=== PATIENT | female | born 1965 | race Caucasian/White ===

== ENCOUNTER 2017-10-06 21:29 | Emergency (ER) | payer BC ==
--- NOTE | 2017-10-06 21:34 | EDM.PDOC ---
ED HPI GENERAL MEDICAL PROBLEM - General Stated Complaint: SUSIDAL Time Seen by Provider: 10/06/17 21:31 - History of Present Illness INITIAL COMMENTS - FREE TEXT/NARRATIVE: HISTORY AND PHYSICAL: History of present illness: Patient 52-year-old female history of depression presents with concern of suicidal ideation she denies any ingestion or attempt and is agreeable to hospitalization Review of systems: As per history of present illness and below otherwise all systems reviewed and negative. Past medical history: As per history of present illness and as reviewed below otherwise noncontributory. Surgical history: As per history of present illness and as reviewed below otherwise noncontributory. Social history: No reported history of drug or alcohol abuse. Family history: As per history of present illness and as reviewed below otherwise noncontributory. Physical exam: HEENT: Atraumatic, normocephalic, pupils reactive, negative for conjunctival pallor or scleral icterus, mucous membranes moist, throat clear, neck supple, nontender, trachea midline. Lungs: Clear to auscultation, breath sounds equal bilaterally, chest nontender. Heart: S1S2, regular, negative for clicks, rubs, or JVD. Abdomen: Soft, nondistended, nontender. Negative for masses or hepatosplenomegaly. Negative for costovertebral tenderness. Pelvis: Stable nontender. Genitourinary: Deferred. Rectal: Deferred. Extremities: Atraumatic, negative for cords or calf pain. Neurovascular unremarkable. Neuro: Awake, alert, oriented. Cranial nerves II through XII unremarkable. Cerebellum unremarkable. Motor and sensory unremarkable throughout. Exam nonfocal. Diagnostics: Psychiatric panel Therapeutics: None Impression: #1 depressive episode with suicidal ideation Definitive disposition and diagnosis as appropriate pending reevaluation and review of above. - Related Data Allergies Allergy/AdvReac Type Severity Reaction Status Date / Time bupropion HCl Allergy Hives Verified 05/15/16 22:14 [From Wellbutrin] Home Meds: Home Meds Hydrocodone/Acetaminophen [Hydrocodon-Acetaminophen 5-325] 5 - 325 mg PO Q4H PRN 05/01/15 [History] LORazepam 1 mg PO TID PRN 05/01/15 [History] Past Medical History HEENT History: Reports: None Cardiovascular History: Reports: Hypertension Other Cardiovascular History: patient claims she has hypertension but she was not taking her antihypertensive meds Musculoskeletal History: Reports: Back Pain, Chronic Neurological History: Reports: Seizure Other Neuro History: had one attack of seizure after taking Wellbutrin Psychiatric History: Reports: ADHD, Anxiety Endocrine/Metabolic History: Reports: None - Infectious Disease History Infectious Disease History: Reports: None - Past Surgical History Musculoskeletal Surgical History: Reports: Other (See Below) Social & Family History - Family History Family Medical History: Noncontributory - Caffeine Use Caffeine Use: Reports: Soda ED ROS GENERAL - Review of Systems Review Of Systems: ROS reveals no pertinent complaints other than HPI. ED EXAM, GENERAL - Physical Exam Exam: See Below (See dictation) Course - Vital Signs Last Recorded V/S: Last Vital Signs Temp 36.8 C 10/06/17 21:41 Pulse 133 H 10/06/17 21:41 Resp 28 H 10/06/17 21:41 BP 190/124 H 10/06/17 22:24 Pulse Ox 96 10/06/17 21:41 - Orders/Labs/Meds Orders: Active Orders 24 hr Category Date Time Status EKG Documentation Completion [RC] STAT Care 10/06/17 21:32 Active DRUG SCREEN, URINE [URCHEM] Stat Lab 10/06/17 21:56 Ordered UA W/MICROSCOPIC [URIN] Stat Lab 10/06/17 21:56 Ordered Labs: Laboratory Tests 10/06/17 10/06/17 10/06/17 Range/Units 21:40 21:40 21:56 WBC 8.57 (4.0-11.0) K/uL RBC 4.22 L (4.30-5.90) M/uL Hgb 15.5 (12.0-16.0) g/dL Hct 44.6 (36.0-46.0) % MCV 105.7 H (80.0-98.0) fL MCH 36.7 H (27.0-32.0) pg MCHC 34.8 (31.0-37.0) g/dL RDW Std Deviation 50.3 (28.0-62.0) fl RDW Coeff of Patsy 13 (11.0-15.0) % Plt Count 218 (150-400) K/uL MPV 9.90 (7.40-12.00) fL Neut % (Auto) 59.3 (48.0-80.0) % Lymph % (Auto) 32.8 (16.0-40.0) % [place] % (Auto) 6.4 (0.0-15.0) % Eos % (Auto) 0.9 (0.0-7.0) % Baso % (Auto) 0.6 (0.0-1.5) % Neut # (Auto) 5.1 (1.4-5.7) K/uL Lymph # (Auto) 2.8 H (0.6-2.4) K/uL [place] # (Auto) 0.6 (0.0-0.8) K/uL Eos # (Auto) 0.1 (0.0-0.7) K/uL Baso # (Auto) 0.1 (0.0-0.1) K/uL Nucleated RBC % 0.0 /100WBC Nucleated RBCs # 0 K/uL Sodium 136 (136-145) mmol/L Potassium 3.3 L (3.5-5.1) mmol/L Chloride 100 (98-107) mmol/L Carbon Dioxide 21.8 (21.0-32.0) mmol/L BUN 15 (7.0-18.0) mg/dL Creatinine 1.0 (0.6-1.0) mg/dL Est Cr Clr Drug Dosing 62.54 mL/min Estimated GFR (MDRD) 57.8 ml/min Glucose 97 (74-106) mg/dL Calcium 9.2 (8.5-10.1) mg/dL Magnesium 1.9 (1.8-2.4) mg/dL Total Bilirubin 0.9 (0.2-1.0) mg/dL AST 61 H (15-37) IU/L ALT 46 (14-63) IU/L Alkaline Phosphatase 81 (46-116) U/L Total Protein 7.9 (6.4-8.2) g/dL Albumin 4.0 (3.4-5.0) g/dL Globulin 3.9 H (2.0-3.5) g/dL Albumin/Globulin Ratio 1.0 L (1.3-2.8) TSH 3rd Generation 2.02 (0.36-3.74) uIU/mL Urine Color YELLOW Urine Appearance CLEAR Urine pH 5.5 (5.0-8.0) Ur Specific Peetz <= 1.005 (1.001-1.035) Urine Protein NEGATIVE (NEGATIVE) mg/dL Urine Glucose (UA) NEGATIVE (NEGATIVE) mg/dL Urine Ketones NEGATIVE (NEGATIVE) mg/dL Urine Occult Blood NEGATIVE (NEGATIVE) Urine Nitrite NEGATIVE (NEGATIVE) Urine Bilirubin NEGATIVE (NEGATIVE) Urine Urobilinogen 0.2 (<2.0) EU/dL Ur Leukocyte Esterase NEGATIVE (NEGATIVE) Urine RBC NONE SEEN (0-2/HPF) Urine WBC 0-1 (0-5/HPF) Ur Epithelial Cells RARE (NONE-FEW) Urine Bacteria RARE (NEGATIVE) Urine Mucus LIGHT (NONE-MOD) Salicylates 1.6 (0-20) mg/dL Urine Opiates Screen (NEGATIVE) Ur Oxycodone Screen (NEGATIVE) Urine Methadone Screen (NEGATIVE) Acetaminophen 0.0 ug/mL Ur Barbiturates Screen (NEGATIVE) Ur Phencyclidine Scrn (NEGATIVE) Ur Amphetamine Screen (NEGATIVE) U Methamphetamines Scrn (NEGATIVE) U Benzodiazepines Scrn (NEGATIVE) U Cocaine Metab Screen (NEGATIVE) U Marijuana (THC) Screen (NEGATIVE) Ethyl Alcohol 259 mg/dL 10/06/17 Range/Units 21:56 WBC (4.0-11.0) K/uL RBC (4.30-5.90) M/uL Hgb (12.0-16.0) g/dL Hct (36.0-46.0) % MCV (80.0-98.0) fL MCH (27.0-32.0) pg MCHC (31.0-37.0) g/dL RDW Std Deviation (28.0-62.0) fl RDW Coeff of Patsy (11.0-15.0) % Plt Count (150-400) K/uL MPV (7.40-12.00) fL Neut % (Auto) (48.0-80.0) % Lymph % (Auto) (16.0-40.0) % [place] % (Auto) (0.0-15.0) % Eos % (Auto) (0.0-7.0) % Baso % (Auto) (0.0-1.5) % Neut # (Auto) (1.4-5.7) K/uL Lymph # (Auto) (0.6-2.4) K/uL [place] # (Auto) (0.0-0.8) K/uL Eos # (Auto) (0.0-0.7) K/uL Baso # (Auto) (0.0-0.1) K/uL Nucleated RBC % /100WBC Nucleated RBCs # K/uL Sodium (136-145) mmol/L Potassium (3.5-5.1) mmol/L Chloride (98-107) mmol/L Carbon Dioxide (21.0-32.0) mmol/L BUN (7.0-18.0) mg/dL Creatinine (0.6-1.0) mg/dL Est Cr Clr Drug Dosing mL/min Estimated GFR (MDRD) ml/min Glucose (74-106) mg/dL Calcium (8.5-10.1) mg/dL Magnesium (1.8-2.4) mg/dL Total Bilirubin (0.2-1.0) mg/dL AST (15-37) IU/L ALT (14-63) IU/L Alkaline Phosphatase (46-116) U/L Total Protein (6.4-8.2) g/dL Albumin (3.4-5.0) g/dL Globulin (2.0-3.5) g/dL Albumin/Globulin Ratio (1.3-2.8) TSH 3rd Generation (0.36-3.74) uIU/mL Urine Color Urine Appearance Urine pH (5.0-8.0) Ur Specific Peetz (1.001-1.035) Urine Protein (NEGATIVE) mg/dL Urine Glucose (UA) (NEGATIVE) mg/dL Urine Ketones (NEGATIVE) mg/dL Urine Occult Blood (NEGATIVE) Urine Nitrite (NEGATIVE) Urine Bilirubin (NEGATIVE) Urine Urobilinogen (<2.0) EU/dL Ur Leukocyte Esterase (NEGATIVE) Urine RBC (0-2/HPF) Urine WBC (0-5/HPF) Ur Epithelial Cells (NONE-FEW) Urine Bacteria (NEGATIVE) Urine Mucus (NONE-MOD) Salicylates (0-20) mg/dL Urine Opiates Screen NEGATIVE (NEGATIVE) Ur Oxycodone Screen NEGATIVE (NEGATIVE) Urine Methadone Screen NEGATIVE (NEGATIVE) Acetaminophen ug/mL Ur Barbiturates Screen NEGATIVE (NEGATIVE) Ur Phencyclidine Scrn NEGATIVE (NEGATIVE) Ur Amphetamine Screen NEGATIVE (NEGATIVE) U Methamphetamines Scrn NEGATIVE (NEGATIVE) U Benzodiazepines Scrn NEGATIVE (NEGATIVE) U Cocaine Metab Screen NEGATIVE (NEGATIVE) U Marijuana (THC) Screen NEGATIVE (NEGATIVE) Ethyl Alcohol mg/dL Meds: Medications Discontinued Medications Generic Name Dose Route Start Last Admin Trade Name Matt PRN Reason Stop Dose Admin Hydralazine HCl 10 mg 10/06/17 21:59 10/06/17 22:23 Apresoline IVPUSH 10/06/17 22:00 10 mg ONETIME ONE Administration Lisinopril 10 mg 10/06/17 21:59 10/06/17 22:24 Prinivil PO 10/06/17 22:00 10 mg ONETIME ONE Administration Lorazepam 1 mg 10/06/17 22:37 Ativan IVPUSH 10/06/17 22:38 ONETIME ONE Departure - Departure Time of Disposition: 22:43 Disposition: DC/Tfer to Psych Hosp/Unit 65 Condition: Good Clinical Impression: Depressive disorder, Alcohol abuse - Discharge Information - My Orders Last 24 Hours: My Active Orders 10/06/17 21:32 EKG Documentation Completion [RC] STAT 10/06/17 21:56 DRUG SCREEN, URINE [URCHEM] Stat UA W/MICROSCOPIC [URIN] Stat - Assessment/Plan Last 24 Hours: My Active Orders 10/06/17 21:32 EKG Documentation Completion [RC] STAT 10/06/17 21:56 DRUG SCREEN, URINE [URCHEM] Stat UA W/MICROSCOPIC [URIN] Stat
[2017-10-06] MEDS ORDERED: hydrALAZINE 20 MG/ML SDV IVPUSH ONE (21:59)
[2017-10-06] MEDS ORDERED: Lisinopril 10 MG Tab PO ONE (21:59)
[2017-10-06] MEDS: LORazepam 2 MG/ML SDV IVPUSH ONE ×2 (22:46→23:37)
[2017-10-06] MEDS ORDERED: LORazepam 2 MG/ML SDV IVPUSH ONE (23:29)
[2017-10-07 00:30] VITALS: BP 156/106
== END 2017-10-07 01:00 ==
LOC: MW.ED 21:29
DX: F32.9 Major depressive disorder, single episode, unspecified (principal); R45.851 Suicidal ideations; F10.129 Alcohol abuse with intoxication, unspecified; I10 Essential (primary) hypertension; F41.9 Anxiety disorder, unspecified; Z88.8 Allergy status to other drugs, medicaments and biological substances; Z79.899 Other long term (current) drug therapy; Y90.8 Blood alcohol level of 240 mg/100 ml or more
CPT/HCPCS: 36415; 80053; 80305; 81001; 83735; 84443; 85025; 93005; 96374; 96375; 99285; A9270; G0480; J0360; J2060

== ENCOUNTER 2018-05-29 22:14 | Emergency (ER) | payer BC ==
[2018-05-29] MEDS ORDERED: Sodium Chloride 0.9% 1,000 ML IV ONE (23:14)
[2018-05-29] MEDS ORDERED: diazePAM 5 MG/ML MDV ONE (23:24)
[2018-05-29] MEDS ORDERED: diazePAM 5 MG/ML MDV IV ONE (23:24)
[2018-05-29 23:38] VITALS: BP 154/115
--- NOTE | 2018-05-29 23:46 | EDM.PDOC ---
ED HPI GENERAL MEDICAL PROBLEM - General Chief Complaint: General Stated Complaint: PT HAS DIFFICULTY BREATHING Time Seen by Provider: 05/29/18 23:46 Source of Information: Reports: Patient - History of Present Illness INITIAL COMMENTS - FREE TEXT/NARRATIVE: HISTORY AND PHYSICAL: History of present illness: [Patient presents with anxiety symptoms she was provided Valium on arrival which much improved anxiety She has a long history of anxiety and panic seen by psychiatry, post Valium we did perform some lab however the patient eloped prior to lab returning She was somewhat milk content as she wanted to visit however I did have several acute patients requiring her transfer she did not want to wait and left prior to lab results ] She is in no distress no fever nausea vomiting chills sweats no chest pain shortness breath headache dizziness palpitation no bowel or urine symptoms Post Valium Review of systems: As per history of present illness and below otherwise all systems reviewed and negative. Past medical history: As per history of present illness and as reviewed below otherwise noncontributory. Surgical history: As per history of present illness and as reviewed below otherwise noncontributory. Social history: No reported history of drug or alcohol abuse. Family history: As per history of present illness and as reviewed below otherwise noncontributory. Physical exam: HEENT: Atraumatic, normocephalic, pupils reactive, negative for conjunctival pallor or scleral icterus, mucous membranes moist, throat clear, neck supple, nontender, trachea midline. Lungs: Clear to auscultation, breath sounds equal bilaterally, chest nontender. Heart: S1S2, regular, negative for clicks, rubs, or JVD. Abdomen: Soft, nondistended, nontender. Negative for masses or hepatosplenomegaly. Negative for costovertebral tenderness. Pelvis: Stable nontender. Genitourinary: Deferred. Rectal: Deferred. Extremities: Atraumatic, negative for cords or calf pain. Neurovascular unremarkable. Neuro: Awake, alert, oriented. Cranial nerves II through XII unremarkable. Cerebellum unremarkable. Motor and sensory unremarkable throughout. Exam nonfocal. Diagnostics: [CBC CMP troponin EKG Chest 1 view ] Therapeutics: [] saline 1 L bolus Valium 5 mg IV Patient eloped Impression: []anxiety/panic Definitive disposition and diagnosis as appropriate pending reevaluation and review of above. - Related Data Allergies Allergy/AdvReac Type Severity Reaction Status Date / Time bupropion HCl Allergy Hives Verified 05/29/18 22:41 [From Wellbutrin] Home Meds: Home Meds LORazepam 1 mg PO TID PRN 05/01/15 [History] Past Medical History HEENT History: Reports: None Cardiovascular History: Reports: Hypertension Other Cardiovascular History: patient claims she has hypertension but she was not taking her antihypertensive meds Musculoskeletal History: Reports: Back Pain, Chronic Neurological History: Reports: Seizure Other Neuro History: had one attack of seizure after taking Wellbutrin Psychiatric History: Reports: ADHD, Anxiety Endocrine/Metabolic History: Reports: None - Infectious Disease History Infectious Disease History: Reports: Chicken Pox, Shingles - Past Surgical History Musculoskeletal Surgical History: Reports: Other (See Below) Social & Family History - Family History Family Medical History: Noncontributory - Tobacco Use Smoking Status *Q: Current Every Day Smoker Years of Tobacco use: 20 Packs/Tins Daily: 1 - Caffeine Use Caffeine Use: Reports: Soda - Recreational Drug Use Recreational Drug Use: No ED ROS GENERAL - Review of Systems Review Of Systems: See Below ED EXAM, GENERAL - Physical Exam Exam: See Below Course - Vital Signs Last Recorded V/S: Last Vital Signs Temp 99.0 F 05/29/18 22:45 Pulse 113 H 05/29/18 23:37 Resp 22 H 05/29/18 23:37 BP 154/115 H 05/29/18 23:37 Pulse Ox 97 05/29/18 23:37 - Orders/Labs/Meds Orders: Active Orders 24 hr Category Date Time Status EKG Documentation Completion [RC] STAT Care 05/29/18 23:13 Active COMPREHENSIVE METABOLIC PN,CMP [CHEM] Stat Lab 05/30/18 00:12 Received TROPONIN I [CHEM] Stat Lab 05/30/18 00:12 Received Labs: Laboratory Tests 05/30/18 Range/Units 00:12 WBC 6.83 (4.0-11.0) K/uL RBC 4.10 L (4.30-5.90) M/uL Hgb 13.6 (12.0-16.0) g/dL Hct 41.0 (36.0-46.0) % MCV 100.0 H (80.0-98.0) fL MCH 33.2 H (27.0-32.0) pg MCHC 33.2 (31.0-37.0) g/dL RDW Std Deviation 57.3 (28.0-62.0) fl RDW Coeff of Patsy 16 H (11.0-15.0) % Plt Count 223 (150-400) K/uL MPV 9.50 (7.40-12.00) fL Neut % (Auto) 57.9 (48.0-80.0) % Lymph % (Auto) 35.1 (16.0-40.0) % [place] % (Auto) 6.0 (0.0-15.0) % Eos % (Auto) 0.6 (0.0-7.0) % Baso % (Auto) 0.4 (0.0-1.5) % Neut # (Auto) 4.0 (1.4-5.7) K/uL Lymph # (Auto) 2.4 (0.6-2.4) K/uL [place] # (Auto) 0.4 (0.0-0.8) K/uL Eos # (Auto) 0.0 (0.0-0.7) K/uL Baso # (Auto) 0.0 (0.0-0.1) K/uL Meds: Medications Discontinued Medications Generic Name Dose Route Start Last Admin Trade Name Freq PRN Reason Stop Dose Admin Diazepam 5 mg 05/29/18 23:24 05/29/18 23:30 Valium IV 05/29/18 23:25 5 mg ONETIME ONE Administration Diazepam Confirm 05/29/18 23:24 05/29/18 23:29 Valium Administered 05/29/18 23:25 Not Given Dose 5 mg .ROUTE .STK-MED ONE Sodium Chloride 1,000 mls @ 999 mls/hr 05/29/18 23:14 05/29/18 23:30 Normal Saline IV 05/30/18 00:14 999 mls/hr STAT ONE Administration Departure - Departure Time of Disposition: 00:55 Disposition: Eloped 07 Condition: Fair Clinical Impression: Anxiety, Panic - Discharge Information Referrals: Hans Saenz MD [Primary Care Provider] - Forms: ED Department Discharge - My Orders Last 24 Hours: My Active Orders 05/29/18 23:13 EKG Documentation Completion [RC] STAT 05/30/18 00:12 COMPREHENSIVE METABOLIC PN,CMP [CHEM] Stat TROPONIN I [CHEM] Stat - Assessment/Plan Last 24 Hours: My Active Orders 05/29/18 23:13 EKG Documentation Completion [RC] STAT 05/30/18 00:12 COMPREHENSIVE METABOLIC PN,CMP [CHEM] Stat TROPONIN I [CHEM] Stat
--- NOTE | 2018-05-29 23:54 | CR ---
Indication: Shortness of breath Technique: Chest 1 view Comparison: 05/15/2016. Findings/Impression: Cardiovascular and mediastinum: Heart size and vasculature are normal in caliber and appearance. Mediastinum is within normal limits. Lungs and pleural space: Lungs are clear. No sign of infiltrate or mass. No sign of pleural effusion. No pneumothorax. Bones and soft tissues: No significant findings. Dictated by Andrade Freeman MD @ 05/29/2018 11:51:58 PM Dictated by: Andrade Freeman MD @ 05/29/2018 23:52:04 (Electronically Signed)
[2018-05-30 00:59] LABS: CHLORIDE,CL 107 mmol/L (98-107); SODIUM,NA 144 mmol/L (136-145)
== END 2018-05-30 00:47 | disposition left against medical advice (07) ==
LOC: MW.ED 22:14
DX: F41.0 Panic disorder [episodic paroxysmal anxiety] (principal); I10 Essential (primary) hypertension; F17.210 Nicotine dependence, cigarettes, uncomplicated; Z88.8 Allergy status to other drugs, medicaments and biological substances
CPT/HCPCS: 36415; 71045; 80053; 84484; 85025; 93005; 96361; 96374; 99284; A9270; J7040; 99282

== ENCOUNTER 2019-04-14 21:47 | Emergency (ER) | payer BC ==
[2019-04-14] MEDS ORDERED: LORazepam 2 MG/ML SDV IVPUSH ONE ×2 (22:09→22:52)
--- NOTE | 2019-04-14 22:15 | EDM.PDOCBH ---
ED HPI GENERAL MEDICAL PROBLEM - General Chief Complaint: Behavioral/Psych Stated Complaint: AMBULANCE PAT Time Seen by Provider: 04/14/19 22:06 Source of Information: Reports: Patient, Family History Limitations: Reports: No Limitations - History of Present Illness INITIAL COMMENTS - FREE TEXT/NARRATIVE: HISTORY OF PRESENT ILLNESS: Patient is a 54-year-old female with history of anxiety who presents to the ED with complaints of severe anxiety. She normally takes Ativan 2 mg p.o. 3 times daily but has been trying not to use it recently. Her last dose was this morning. She reports agoraphobia and has not left her house in some time. States she has had "tics" x 6 months+ and is seeing a psychiatrist for both this and her anxiety. She denies any chest pain or dyspnea. No abdominal pain. No focal weakness or paresthesias. Denies any seizures. No changes in speech or changes in vision. Blood Pressure was noted to be elevated. Patient states this is a frequent occurrence during her anxiety episodes. She is not on any antihypertensives as she states her doctor feels she will "bottom out" during her periods of non-anxiety. Denies any suicidal or homicidal ideation. Denies any hallucinations. REVIEW OF SYSTEMS: Other than the symptoms associated with the present events, the following is reported with regard to recent health: General: (-) fever. HENT: (-) congestion. Respiratory: (-) cough. Cardiovascular: (-) chest pain. GI: (-) abdominal pain. : (-) urinary complaints. Musculoskeletal: (-) other aches or pains. Endocrine: (-) generalized weakness. Neurological: (-) localized weakness. Skin: (-) rash Psych: (+) depression and anxiety (-) SI/HI (-) hallucinations PAST MEDICAL HISTORY: reviewed as per nursing notes SOCIAL HISTORY: reviewed as per nursing notes, MEDICATIONS: Per nurse's note ALLERGIES: Per nurse's note, reviewed by me PHYSICAL EXAMINATION: GENERALIZED APPEARANCE: well developed, well nourished in moderate emotional distress, anxious appearing VITAL SIGNS: Per nurse's note, reviewed by me SKIN: Warm, dry; (-) cyanosis; (-) rash. HEAD: (-) scalp swelling, (-) tenderness. EYES: (-) conjunctival pallor, (-) scleral icterus. ENMT: (-) stridor; mucous membranes moist. NECK: (-) tenderness, (-) stiffness, CHEST AND RESPIRATORY: (-) rales, (-) rhonchi, (-) wheezes; breath sounds equal bilaterally. HEART AND CARDIOVASCULAR: (-) irregularity; (-) murmur, (-) gallop. ABDOMEN AND GI: Soft; (-) tenderness, (-) guarding, (-) rebound, (-) palpable masses, EXTREMITIES: (-) deformity, (-) edema. NEURO AND PSYCH: Mental status as above. Cranial nerves grossly intact; strength symmetric. gait steady. 5/5+ strength in UE and LE. no facial droop. Normal speech. EOMI. no visual field defects. sensation intact. NIHSS = 0. DIAGNOSTICS: EKG: st at 108 bpm. with pvc. nml axis. no st elevation or depression. EMERGENCY DEPARTMENT COURSE AND TREATMENT: Patient's condition improved during Emergency Department evaluation. Given Ativan 1mg IV x2 with improvement of symptoms. BP and HR improved. PLAN AND FOLLOW-UP: Patient received written and verbal instructions regarding this condition. Follow up to be arranged by patient with pcp and psychiatrist in 1-2 days for further evaluation. Return immediately with any new or worsening symptoms. Given discharge precautions. Patient expressed verbal understanding. - Related Data Allergies Allergy/AdvReac Type Severity Reaction Status Date / Time bupropion HCl Allergy Hives Verified 04/14/19 22:00 [From Wellbutrin] Home Meds: Home Meds LORazepam 1 tab PO TID PRN 05/01/15 [History] Past Medical History HEENT History: Reports: None Cardiovascular History: Reports: Hypertension Other Cardiovascular History: patient claims she has hypertension but she was not taking her antihypertensive meds Musculoskeletal History: Reports: Back Pain, Chronic Neurological History: Reports: Seizure Other Neuro History: had one attack of seizure after taking Wellbutrin Psychiatric History: Reports: ADHD, Anxiety Endocrine/Metabolic History: Reports: None - Infectious Disease History Infectious Disease History: Reports: Chicken Pox, Shingles - Past Surgical History Musculoskeletal Surgical History: Reports: Other (See Below) Social & Family History - Family History Family Medical History: Noncontributory - Caffeine Use Caffeine Use: Reports: Soda ED ROS GENERAL - Review of Systems Review Of Systems: See Below (See dictation) ED EXAM, BEHAVIORAL HEALTH - Physical Exam Exam: See Below (See dictation) COURSE, BEHAVIORAL HEALTH COMP - Course Vital Signs: Last Vital Signs Temp 97.9 F 04/14/19 21:57 Pulse 98 04/14/19 23:15 Resp 16 04/14/19 23:15 BP 140/85 04/14/19 23:15 Pulse Ox 95 04/14/19 23:15 Orders, Labs, Meds: Active Orders 24 hr Category Date Time Status EKG 12 Lead [EKG Documentation Completion] [RC] STAT Care 04/14/19 22:08 Active Vital Signs [RC] PER UNIT ROUTINE Care 04/14/19 23:17 Active Medications Discontinued Medications Generic Name Dose Route Start Last Admin Trade Name Freq PRN Reason Stop Dose Admin Lorazepam 1 mg 04/14/19 22:09 04/14/19 22:20 Ativan IVPUSH 04/14/19 22:10 1 mg ONETIME ONE Administration Lorazepam 1 mg 04/14/19 22:52 04/14/19 22:58 Ativan IVPUSH 04/14/19 22:53 1 mg ONETIME ONE Administration Departure - Departure Time of Disposition: 23:15 Disposition: Home, Self-Care 01 Condition: Good Clinical Impression: Anxiety - Discharge Information *PRESCRIPTION DRUG MONITORING PROGRAM REVIEWED*: Not Applicable *COPY OF PRESCRIPTION DRUG MONITORING REPORT IN PATIENT DONNA: Not Applicable Instructions: Generalized Anxiety Disorder, Adult, Panic Attack Referrals: PCP,Unknown [Primary Care Provider] - 2 Days (Follow up with your psychiatrist in 1-2 days. Return immediately with any new or worsening symptoms. ) Forms: ED Department Discharge Additional Instructions: The following information is given to patients seen in the emergency department who are being discharged to home. This information is to outline your options for follow-up care. We provide all patients seen in our emergency department with a follow-up referral. The need for follow-up, as well as the timing and circumstances, are variable depending upon the specifics of your emergency department visit. If you don't have a primary care physician on staff, we will provide you with a referral. We always advise you to contact your personal physician following an emergency department visit to inform them of the circumstance of the visit and for follow-up with them and/or the need for any referrals to a consulting specialist. The emergency department will also refer you to a specialist when appropriate. This referral assures that you have the opportunity for follow-up care with a specialist. All of these measure are taken in an effort to provide you with optimal care, which includes your follow-up. Under all circumstances we always encourage you to contact your private physician who remains a resource for coordinating your care. When calling for follow-up care, please make the office aware that this follow-up is from your recent emergency room visit. If for any reason you are refused follow-up, please contact the [facility] Emergency Department at and asked to speak to the emergency department charge nurse. Follow up with primary medical provider Sepsis Event Note - Evaluation Sepsis Screening Result: No Definite Risk - Focused Exam Vital Signs: Vital Signs Temp Pulse Resp BP Pulse Ox 04/14/19 23:15 98 16 140/85 95 04/14/19 21:57 97.9 F 125 H 26 H 213/106 H 98 Date Exam was Performed: 04/15/19 Time Exam was Performed: 04:23 - My Orders Last 24 Hours: My Active Orders 04/14/19 22:08 EKG 12 Lead [EKG Documentation Completion] [RC] STAT 04/14/19 23:17 Vital Signs [RC] PER UNIT ROUTINE - Assessment/Plan Last 24 Hours: My Active Orders 04/14/19 22:08 EKG 12 Lead [EKG Documentation Completion] [RC] STAT 04/14/19 23:17 Vital Signs [RC] PER UNIT ROUTINE
[2019-04-14 23:26] VITALS: BP 140/85; PULSE 98
== END 2019-04-14 23:15 | disposition home or self-care (01) ==
LOC: MW.ED 21:47
DX: F41.9 Anxiety disorder, unspecified (principal); I10 Essential (primary) hypertension; Z88.8 Allergy status to other drugs, medicaments and biological substances; Z79.899 Other long term (current) drug therapy
CPT/HCPCS: 93005; 96374; 96376; 99283; J2060

== ENCOUNTER 2019-06-30 21:56 | Emergency (ER) | payer BC ==
[2019-06-30] MEDS ORDERED: Ketorolac 30 MG/ML SDV IM ONE (22:34)
[2019-06-30] MEDS ORDERED: LORazepam 1 MG Tab PO ONE (22:34)
--- NOTE | 2019-06-30 22:46 | EDM.PDOCBH ---
ED [facility] GENERAL MEDICAL PROBLEM - General Chief Complaint: Behavioral/Psych Stated Complaint: EMS Time Seen by Provider: 06/30/19 23:03 Source of Information: Reports: Patient History Limitations: Reports: No Limitations - History of Present Illness INITIAL COMMENTS - FREE TEXT/NARRATIVE: Patient is a 54-year-old female past medical history of anxiety presenting with chief complaint of feeling panicked and having diffuse pains and aches. Patient states that the symptoms happen earlier today. Patient reports general stress from the coronavirus but no particular increased life stressors. Patient states that she feels anxious and was drinking some alcohol to help with anxiety. Patient reports last drink over 4 hours ago. Patient states she only drank 3 glasses of alcohol. Patient denies any additional drug use. Patient states she takes Lorazepam and is prescribed this for anxiety but is not taking any today. Patient denies any chest pain, shortness of breath, palpitations. Patient states both of her legs are diffusely and she has pain in her left and right arms diffusely. No recent injuries. No heavy exertional complaints. Patient denies suicidal and homicidal ideations. Patient was also asked about possible hallucinations which are reported to nurse. Patient states she does occasionally see a small girl when she closes her eyes. The girl only asked her to help her. The patient does not know who this girl is. Patient states she does not see them when her eyes are open. Patient states is ongoing for the past 1-1/2 months and does not seem to really related to anything. Patient denies any of these symptoms currently. Pmhx: Anxiety Pshx: None Family Hx: noncontributory Smoking history? no Etoh use? Occasional Drug use? none In addition to that documented in the HPI above, the additional ROS was obtained : Constitutional: Denies fevers or chills Eyes: Denies vision changes ENMT: Denies sore throat CV: Denies chest pain Resp: Denies SOB GI: Denies vomiting or diarrhea : Denies painful urination MSK: Denies recent trauma Skin: Denies new rashes Neuro: Denies new numbness or tingling or weakness Endocrine: Denies unexpected weight loss Heme: Denies bleeding disorders I have reviewed the triage vital signs Const: Patient is teary-eyed and in mild emotional distress but does not demonstrate any evidence of slurring of speech or unsteady gait. Eyes: PERRL, no conjunctival injection HENT: NCAT, Neck supple without meningismus CV: RRR, Warm, well-perfused extremities RESP: CTAB, Unlabored respiratory effort GI: soft, non-tender, non-distended, no masses MSK: No gross deformities appreciated Skin: Warm, dry. No rashes Neuro: Alert, hole filler II-XII grossly intact. Sensation and motor function of extremities grossly intact. Psych: Slightly sad but appropriate mood and normal affect Assessment and plan: Patient is a 54-year-old female presenting with chief complaint of anxiety. Patient is quite anxious on arrival but does not appear to be intoxicated. There is also no evidence of alcohol withdrawal. In addition, there are no symptoms of chest pain no shortness of breath that would be concerning for a cardiac issue. Patient has normal sinus rhythm on the monitor. Patient given a small dose of lorazepam p.o. as well as Toradol for diffuse body aches. Patient states she does not want to wait for any further evaluation and that her here and will take her home. As the patient is not actively psychotic, suicidal, or homicidal, intoxicated the patient will not be held against her will and nursing staff witnessed her walking out prior to my repeat evaluation. Generalized Pain Score (Numeric/FACES): 8 - Related Data Allergies Allergy/AdvReac Type Severity Reaction Status Date / Time bupropion HCl Allergy Hives Verified 06/30/19 22:13 [From Wellbutrin] Home Meds: Home Meds LORazepam 1 tab PO TID PRN 05/01/15 [History] Past Medical History HEENT History: Reports: None Other HEENT History: missing several teeth Cardiovascular History: Reports: Hypertension Other Cardiovascular History: patient claims she has hypertension but she was not taking her antihypertensive meds Respiratory History: Reports: Other (See Below) Other Respiratory History: chronic smoker Musculoskeletal History: Reports: Back Pain, Chronic Neurological History: Reports: Seizure Other Neuro History: had one attack of seizure after taking Wellbutrin Psychiatric History: Reports: ADHD, Anxiety, Hallucinations, Panic Attack, Other (See Below) Other Psychiatric History: agorophobia Endocrine/Metabolic History: Reports: None - Infectious Disease History Infectious Disease History: Reports: Chicken Pox, Shingles - Past Surgical History Musculoskeletal Surgical History: Reports: Other (See Below) Social & Family History - Family History Family Medical History: Noncontributory - Tobacco Use Smoking Status *Q: Current Every Day Smoker Years of Tobacco use: 40 Packs/Tins Daily: 1 - Caffeine Use Caffeine Use: Reports: Soda - Recreational Drug Use Recreational Drug Use: No ED ROS GENERAL - Review of Systems Review Of Systems: See Below ED EXAM, BEHAVIORAL HEALTH - Physical Exam Exam: See Below COURSE, BEHAVIORAL HEALTH COMP - Course Vital Signs: Last Vital Signs Temp 35.8 C L 06/30/19 22:06 Pulse 116 H 06/30/19 22:06 Resp 24 H 06/30/19 22:06 BP 157/101 H 06/30/19 22:06 Pulse Ox Orders, Labs, Meds: Medications Discontinued Medications Generic Name Dose Route Start Last Admin Trade Name Freq PRN Reason Stop Dose Admin Ketorolac Tromethamine 30 mg 06/30/19 22:34 06/30/19 22:48 Toradol IM 06/30/19 22:35 30 mg ONETIME ONE Administration Lorazepam 1 mg 06/30/19 22:34 06/30/19 22:47 Ativan PO 06/30/19 22:35 1 mg ONETIME ONE Administration Departure - Departure Time of Disposition: 22:57 Disposition: Home, Self-Care 01 Clinical Impression: Anxiety - Discharge Information Referrals: PCP,None [Primary Care Provider] - Forms: ED Department Discharge Additional Instructions: The following information is given to patients seen in the emergency department who are being discharged to home. This information is to outline your options for follow-up care. We provide all patients seen in our emergency department with a follow-up referral. The need for follow-up, as well as the timing and circumstances, are variable depending upon the specifics of your emergency department visit. If you don't have a primary care physician on staff, we will provide you with a referral. We always advise you to contact your personal physician following an emergency department visit to inform them of the circumstance of the visit and for follow-up with them and/or the need for any referrals to a consulting specialist. The emergency department will also refer you to a specialist when appropriate. This referral assures that you have the opportunity for follow-up care with a specialist. All of these measure are taken in an effort to provide you with optimal care, which includes your follow-up. Under all circumstances we always encourage you to contact your private physician who remains a resource for coordinating your care. When calling for follow-up care, please make the office aware that this follow-up is from your recent emergency room visit. If for any reason you are refused follow-up, please contact the [facility] Emergency Department at and asked to speak to the emergency department charge nurse. Sepsis Event Note - Evaluation Sepsis Screening Result: No Definite Risk - Focused Exam Vital Signs: Vital Signs Temp Pulse Resp BP 06/30/19 22:06 35.8 C L 116 H 24 H 157/101 H Date Exam was Performed: 06/30/19 Time Exam was Performed: 23:03
[2019-06-30 22:58] VITALS: BP 157/101; PULSE 116
== END 2019-06-30 23:00 | disposition left against medical advice (07) ==
LOC: MW.ED 21:56
DX: F41.9 Anxiety disorder, unspecified (principal); F17.210 Nicotine dependence, cigarettes, uncomplicated; I10 Essential (primary) hypertension; Z88.8 Allergy status to other drugs, medicaments and biological substances
CPT/HCPCS: 96372; 99283; A9270; J1885

== ENCOUNTER 2020-09-12 20:18 | Emergency (ER) | payer BC ==
--- NOTE | 2020-09-12 20:22 | EDM.PDOC ---
ED HPI GENERAL MEDICAL PROBLEM - General Chief Complaint: General Stated Complaint: ANXIETY TICKS, NOT FEELING WELL Time Seen by Provider: 09/12/20 20:21 Source of Information: Reports: Patient History Limitations: Reports: No Limitations - History of Present Illness INITIAL COMMENTS - FREE TEXT/NARRATIVE: 55-year-old female past medical history agoraphobia, anxiety disorder, alcohol abuse presents for anxiety. Patient notes a several year history of anxiety. She notes history of posttraumatic stress disorder. She notes that she gets tics with her anxiety and occasionally outbursts with screaming. She feels short of breath. She does not currently have a psychiatrist. She was seeing somebody in [place] several years ago but has not followed up. Denies suicidal or homicidal ideation. Denies hallucinations. Took 2 mg of lorazepam roughly 4 hours ago. - Related Data Allergies Allergy/AdvReac Type Severity Reaction Status Date / Time bupropion HCl Allergy Hives Verified 09/12/20 20:36 [From Wellbutrin] Home Meds: Home Meds LORazepam 1 tab PO TID PRN 05/01/15 [History] Past Medical History HEENT History: Reports: None Other HEENT History: missing several teeth Cardiovascular History: Reports: Hypertension Other Cardiovascular History: patient claims she has hypertension but she was not taking her antihypertensive meds Respiratory History: Reports: Other (See Below) Other Respiratory History: chronic smoker Musculoskeletal History: Reports: Back Pain, Chronic Neurological History: Reports: Seizure Other Neuro History: had one attack of seizure after taking Wellbutrin Psychiatric History: Reports: ADHD, Anxiety, Hallucinations, Panic Attack, Other (See Below) Other Psychiatric History: agorophobia Endocrine/Metabolic History: Reports: None - Infectious Disease History Infectious Disease History: Reports: Chicken Pox, Shingles - Past Surgical History Musculoskeletal Surgical History: Reports: Other (See Below) Social & Family History - Family History Family Medical History: No Pertinent Family History - Caffeine Use Caffeine Use: Reports: Soda ED ROS GENERAL - Review of Systems Review Of Systems: Comprehensive ROS is negative, except as noted in HPI. ED EXAM, GENERAL - Physical Exam Exam: See Below Exam Limited By: No Limitations General Appearance: Alert, WD/WN, Anxious Ears: Hearing Grossly Normal Throat/Mouth: Normal Voice, No Airway Compromise Head: Atraumatic, Normocephalic Respiratory/Chest: No Respiratory Distress, Lungs Clear, Normal Breath Sounds, No Accessory Muscle Use Cardiovascular: Normal Peripheral Pulses, Tachycardia Extremities: Normal Inspection Neurological: Alert, Normal Cognition, Normal Gait Psychiatric: Normal Affect, Normal Mood Skin Exam: Warm, Dry, Intact, Normal Color Course - Vital Signs Last Recorded V/S: Last Vital Signs Temp 97.2 F 09/12/20 20:32 Pulse 123 H 09/12/20 20:32 Resp 16 09/12/20 20:32 BP 176/108 H 09/12/20 20:32 Pulse Ox 97 09/12/20 20:32 - Orders/Labs/Meds Meds: Medications Discontinued Medications Generic Name Dose Route Start Last Admin Trade Name Matt PRN Reason Stop Dose Admin Haloperidol Lactate 5 mg 09/12/20 20:37 09/12/20 20:50 Haloperidol Lactate 5 Mg/Ml Sdv IM 09/12/20 20:38 5 mg ONETIME ONE Administration Lorazepam 2 mg 09/12/20 20:37 09/12/20 20:49 Lorazepam 2 Mg/Ml Sdv IM 09/12/20 20:38 2 mg ONETIME ONE Administration - Re-Assessments/Exams Free Text/Narrative Re-Assessment/Exam: 09/12/20 20:40 Patient presents with anxiety for several years worsening today. She is noted to be tachycardic and hypertensive but she is declining work-up. She just wants medications to feel better. I did recommend work-up including labs, EKG, chest x-ray but again she declined. I asked if she think she would benefit from a psychiatric admission and she declines. She is not suicidal homicidal. Will give Ativan and Haldol for relief of symptoms and anticipate referral to psychiatry. 09/12/20 21:12 Patient is feeling better after medications. Will discharge patient with instructions to follow-up with psychiatry. Information for psychiatry follow-up was provided and discharge handout. Return precautions were discussed at length. Departure - Departure Time of Disposition: 21:12 Disposition: Home, Self-Care 01 Condition: Good Clinical Impression: Anxiety - Discharge Information Instructions: Managing Anxiety, Adult Referrals: Hans Saenz MD [Primary Care Provider] - Forms: ED Department Discharge Additional Instructions: You presented with symptoms suggestive of severe anxiety. It seems to be that your anxiety is impacting your ability to live a happy life. I would recommend following up with a psychiatrist for long-term management of your mental health issues. Information is provided below for psychiatric services. Sendy Best, DEREK [address] [place], [place] [id number] [facility] (has telepsychiatry services) [address] [place] [address] [facility] [address] [place] [address] The following information is given to patients seen in the emergency department who are being discharged to home. This information is to outline your options for follow-up care. We provide all patients seen in our emergency department with a follow-up referral. The need for follow-up, as well as the timing and circumstances, are variable depending upon the specifics of your emergency department visit. If you don't have a primary care physician on staff, we will provide you with a referral. We always advise you to contact your personal physician following an emergency department visit to inform them of the circumstance of the visit and for follow-up with them and/or the need for any referrals to a consulting specialist. The emergency department will also refer you to a specialist when appropriate. This referral assures that you have the opportunity for follow-up care with a specialist. All of these measure are taken in an effort to provide you with optimal care, which includes your follow-up. Under all circumstances we always encourage you to contact your private physician who remains a resource for coordinating your care. When calling for follow-up care, please make the office aware that this follow-up is from your recent emergency room visit. If for any reason you are refused follow-up, please contact the [facility] Emergency Department at and asked to speak to the emergency department charge nurse. Please follow up with your primary care physician. If you do not have a primary care physician, see below: [facility] [address] [place] [id number] [facility] [address] [place] [address] [facility] [address] [place] [address] Sepsis Event Note (ED) - Focused Exam Vital Signs: Vital Signs Temp Pulse Resp BP Pulse Ox 09/12/20 20:32 97.2 F 123 H 16 176/108 H 97
[2020-09-12 20:36] VITALS: BP 176/108; PULSE 123
[2020-09-12] MEDS ORDERED: Haloperidol Lactate 5 MG/ML SDV IM ONE (20:37)
[2020-09-12] MEDS ORDERED: LORazepam 2 MG/ML SDV IM ONE (20:37)
== END 2020-09-12 21:20 | disposition home or self-care (01) ==
LOC: MW.ED 20:18
DX: F41.9 Anxiety disorder, unspecified (principal); I10 Essential (primary) hypertension; F17.200 Nicotine dependence, unspecified, uncomplicated; Z88.8 Allergy status to other drugs, medicaments and biological substances
CPT/HCPCS: 96372; 99283; J1630; J2060

== ENCOUNTER 2021-06-13 08:12 | Emergency (ER) | payer BC ==
[2021-06-13] MEDS ORDERED: Sodium Chloride 0.9% 1,000 ML IV ONE (08:22)
[2021-06-13] MEDS ORDERED: Sodium Chloride 0.9% 10 ML Syringe FLUSH PRN (08:22)
[2021-06-13] MEDS ORDERED: Sodium Chloride 0.9% 2.5 ML Syringe FLUSH PRN (08:22)
[2021-06-13] MEDS ORDERED: 50% Dextrose in Water 50 ML Syringe IV STA (08:24)
[2021-06-13] MEDS ORDERED: Cefepime 1 GM in Premix Bag 1 BAG IV ONE (08:25)
[2021-06-13] MEDS ORDERED: Magnesium Sulfate (4.06 MEQ/ML) 5 GM/10 ML SDV IV STA (08:39)
[2021-06-13] MEDS ORDERED: Magnesium Sulfate/Water 2 GM in Premix Bag 1 BAG IV ONE (09:00)
[2021-06-13] MEDS ORDERED: Sodium Chloride 0.9% 1,000 ML IV STA (09:01)
[2021-06-13 09:03] LABS: BLOOD UREA NITROGEN,BUN 30 mg/dL (7.0-18.0); CARBON DIOXIDE,CO2 9.5 mmol/L (21.0-32.0); CHLORIDE,CL 90 mmol/L (98-107); GLUCOSE RANDOM 79 mg/dL (74-106); LIPASE 403 U/L (73-393); POTASSIUM,K 3.9 mmol/L (3.5-5.1); SODIUM,NA 134 mmol/L (136-145)
[2021-06-13 09:07] LABS: ACETAMINOPHEN < 2.0 ug/mL
[2021-06-13 09:12] LABS: CORONAVIRUS COVID-19 NAA NEGATIVE (NEGATIVE); INFLUENZA A NAA NEGATIVE (NEGATIVE); INFLUENZA B NAA NEGATIVE (NEGATIVE)
[2021-06-13] MEDS ORDERED: Levothyroxine 100 MCG Vial IVPUSH STA (10:18)
[2021-06-13] MEDS ORDERED: Hydrocortisone Sodium Succinate 100 MG/2 ML SDV IVPUSH ONE (10:19)
[2021-06-13] MEDS ORDERED: Dextrose 5%-0.9% NaCl 1,000 ML IV STA (13:18)
[2021-06-13] MEDS ORDERED: Sodium Bicarbonate 100 MEQ in Dextrose 5% in Water 100 ML IV ONE ×2 (13:18)
[2021-06-13] MEDS ORDERED: Ketorolac 30 MG/ML SDV IM ONE (14:03)
[2021-06-13 15:24] VITALS: BP 101/50; PULSE 88
== END 2021-06-13 14:10 ==
LOC: MW.ED 08:12
DX: A41.9 Sepsis, unspecified organism (principal); R65.21 Severe sepsis with septic shock; N17.9 Acute kidney failure, unspecified; K72.90 Hepatic failure, unspecified without coma; E11.649 Type 2 diabetes mellitus with hypoglycemia without coma; E11.10 Type 2 diabetes mellitus with ketoacidosis without coma; D64.9 Anemia, unspecified; E80.6 Other disorders of bilirubin metabolism; I10 Essential (primary) hypertension; Z88.8 Allergy status to other drugs, medicaments and biological substances; Z20.822 Contact with and (suspected) exposure to COVID-19
CPT/HCPCS: 0240U; 36415; 36430; 36556; 51702; 70450; 71045; 76705; 80053; 80143; 80179; 80305; 80307; 81001; 82140; 82803; 82947; 83605; 83690; 83735; 84484; 85014; 85018; 85025; 85610; 85730; 86850; 86900; 86901; 86920; 87040; 93005; 96365; 96366; 96367; 96368; 96375; 99291; 99292; J0692; J1720; J3370; J3475; J7030; J7042; J7050; P9016; 86921; 86922